=== PATIENT | female | born 1975 | race Hispanic/Latino ===

== ENCOUNTER 2019-05-14 00:25 | Emergency (ER) | payer BC, OTHER ==
[2019-05-14] MEDS ORDERED: Rocuronium Bromide 50 MG/5 ML VIAL ONE ×2 (00:29→03:51)
[2019-05-14 00:55] LABS: Alcohol 166 mg/dL (Less than 10)
[2019-05-14 00:56] LABS: Salicylate Less than 8.0 mg/dL (15.0-30.0)
[2019-05-14 00:57] LABS: Acetaminophen Less than 6.0 mcg/mL (10.0-30.0)
[2019-05-14 01:14] LABS: ALT (SGPT) 12 U/L (8-55); AST (SGOT) 13 U/L (5-34); Albumin 3.9 g/dL (3.5-5.0); Alkaline Phosphatase 46 U/L (40-110); Anion Gap 17 mmol/L (10-20); BUN (Urea Nitrogen) 4 mg/dL (7.0-18.7); Bilirubin, Total Less than 0.2 mg/dL (0.2-1.2); Calc. Creatinine Clearance 0 mL/min (70-130); Calcium 8.2 mg/dL (7.8-10.44); Carbon Dioxide 17 mmol/L (22-29); Chloride 108 mmol/L (98-107); Estimated GFR-MDRD 72; Glucose 208 mg/dL (70-105); Potassium 3.5 mmol/L (3.5-5.1); Protein, Total 6.9 g/dL (6.0-8.3); Sodium 138 mmol/L (136-145)
[2019-05-14 01:16] LABS: Hemoglobin 11.8 g/dL (12.0-16.0); Mean Corpuscular HGB CONC 30.7 g/dL (32.0-36.0); Mean Corpuscular Hemoglobin 32.3 pg (27.0-31.0); Mean Platelet Volume 7.8 fL (7.4-10.4); Platelet Count 328 thou/uL (130-400); Red Blood Cell (RBC) Count 3.64 mill/uL (4.20-5.40); White Blood Cell (WBC) Count 9.7 thou/uL (4.8-10.8)
[2019-05-14 01:17] LABS: #Lymphocytes 2.8 thou/uL (1.20-3.40); #Monocytes 0.8 thou/uL (0.11-0.59); #Neutrophils 5.9 thou/uL (1.40-6.50); %Basophils 1.3 % (0.0-1.0); %Eosinophils 1.6 % (0.0-10.0); %Lymphocytes 28.7 % (21.0-51.0); %Monocytes 8.2 % (0.0-10.0); %Neutrophils 60.3 % (42.0-75.0)
[2019-05-14 01:18] LABS: #Basophils 0.1 thou/uL (0.0-0.2); #Eosinphils 0.2 thou/uL (0.0-0.7); Manual Diff?? NO
[2019-05-14] MEDS ORDERED: Norepinephrine 4 MG/4 ML VIAL ONE (01:23)
[2019-05-14 01:28] LABS: Bilirubin Negative (Negative); Blood, Urine Negative (Negative); Clarity Slightly Cloudy (Clear); Glucose, Urine (Dipstick) Negative (Negative); Leukocyte Trace (Negative); Nitrite Negative (Negative); Protein, Urine (Dipstick) 30 mg/dL (Neg-Trace); Urobilinogen 0.2 mg/dL (Less than 2)
[2019-05-14 01:31] LABS: Pregnancy Test - Urine (BHCG) Negative (Negative); Pregu Control Background? CLEAR/WHITE (CLR/WHITE); Pregu Control Bar Appear? YES (CONTROL BAR); Specific Gravity 1.004 (1.002-1.036)
[2019-05-14 01:35] LABS: Bacteria/HPF Rare-Few HPF (None Seen); RBC/HPF None Seen HPF (0-3); Squamous Epithelial 0-3 HPF (0-3)
[2019-05-14 01:40] LABS: Amphetamine Not Detected (NotDetected); Barbiturates Screen Not Detected (NotDetected); Benzodiazepine Screen Not Detected (NotDetected); Cocaine Metabolite Screen Not Detected (NotDetected); Medtox Control Line Valid? VALID (VALID); Methadone Not Detected (NotDetected); Methamphetamine Not Detected (NotDetected); Opiate Screen Not Detected (NotDetected); Oxycodone Screen Not Detected (NotDetected); Phencyclidine (PCP) Not Detected (NotDetected); THC/Cannabinoid Screen Not Detected (NotDetected); Tricyclic Screen Not Detected (NotDetected)
[2019-05-14 01:41] LABS: Base Excess-Venous -11.6 mmol/L (-2.0 to 3.0); Bicarbonate (HCO3v) 15.8 mmol/L (22.0-28.0); CO2 Tension (PvCO2) 41.1 mmHg (40.0-50.0); Calcium, Ionized 0.98 mmol/L (See Comments:); Chloride 114 mmol/L (98-107); Hemoglobin - Calc 8.8 g/dL (12.0-16.0); Potassium 2.7 mmol/L (3.5-5.1); Sodium 143 mmol/L (138-145); T. Carbon Dioxide 17.1 mmol/L (22.0-28.0); vO2 Saturation-calc 99.4 % (60.0-85.0)
[2019-05-14] MEDS ORDERED: Potassium Chloride 20 MEQ/100 ML PREMIX BAG ONE (01:45)
[2019-05-14 02:21] LABS: Bicarbonate (HCO3v) 15.9 mmol/L (22.0-28.0); CO2 Tension (PvCO2) 39.9 mmHg (40.0-50.0)
[2019-05-14 02:22] LABS: Base Excess-Venous -11.4 mmol/L (-2.0 to 3.0); vO2 Saturation-calc 98.4 % (60.0-85.0)
[2019-05-14 02:25] LABS: Calcium, Ionized 1.04 mmol/L (See Comments:); Chloride 111 mmol/L (98-107); Hemoglobin - Calc 10.4 g/dL (12.0-16.0); Potassium 3.5 mmol/L (3.5-5.1); Sodium 141 mmol/L (138-145); T. Carbon Dioxide 17.1 mmol/L (22.0-28.0)
[2019-05-14] MEDS ORDERED: Fentanyl 100 MCG/2 ML VIAL ONE (03:50)
[2019-05-14] MEDS ORDERED: Ketamine 50 MG/ML (10ML VIAL) ONE (03:52)
--- NOTE | 2019-05-14 07:34 | RAD ---
EXAM: Single view of the chest HISTORY: Endotracheal tube placement for respiratory failure COMPARISON: 05/13/2019 FINDINGS: Single view of the chest shows a normal sized cardiomediastinal silhouette. An endotrachea l tube is seen in good position with its tip between the clavicles. There is no evidence of consolidation, mass, or pleural effusion. The bones are unremarkable. IMPRESSION: No evidence of acute cardiopulmonary disease
[2019-05-14] MEDS ORDERED: EPINEPHrine 1 MG/10 ML Abboject SYRINGE ONE (09:07)
== END 2019-05-14 02:25 | disposition short-term general hospital (02) ==
LOC: BURERS 00:25
DX: T43.212A Poisoning by selective serotonin and norepinephrine reuptake inhibitors, intentional self-harm, initial encounter (principal); T42.8X2A Poisoning by antiparkinsonism drugs and other central muscle-tone depressants, intentional self-harm, initial encounter; R41.82 Altered mental status, unspecified; R94.31 Abnormal electrocardiogram [ECG] [EKG]; F41.9 Anxiety disorder, unspecified; F31.9 Bipolar disorder, unspecified; F17.210 Nicotine dependence, cigarettes, uncomplicated; Z79.899 Other long term (current) drug therapy
CPT/HCPCS: 31500; 36415; 71045; 80053; 80306; 80307; 81003; 81015; 81025; 82330; 82803; 83605; 83735; 85025; 93005; 96360; 96361; 96365; 96375; 96376; J0171; J3010; J3480

== ENCOUNTER 2022-06-09 15:48 | Emergency (ER) | payer MEDICARE, MEDICAID ==
[2022-06-09] MEDS ORDERED: Dexamethasone 4 MG TAB ONE (16:51)
== END 2022-06-09 17:54 | disposition home or self-care (01) ==
LOC: BURERS 15:48
DX: J11.1 Influenza due to unidentified influenza virus with other respiratory manifestations (principal); F17.210 Nicotine dependence, cigarettes, uncomplicated
CPT/HCPCS: 87804; 99283; J8540

== ENCOUNTER 2023-02-05 18:05 | Emergency (ER) | payer MEDICARE, MEDICAID ==
[2023-02-05] MEDS ORDERED: Bupivacaine 0.5% 10 ML VIAL ONE (18:45)
[2023-02-05] MEDS ORDERED: Amoxicillin/Potassium Clav 875 MG TAB ONE (19:15)
== END 2023-02-05 19:19 | disposition home or self-care (01) ==
LOC: BURERS 18:05
DX: K04.7 Periapical abscess without sinus (principal); F17.210 Nicotine dependence, cigarettes, uncomplicated
CPT/HCPCS: 41800; J3490

== ENCOUNTER 2023-07-28 09:25 | Emergency (ER) | payer MEDICARE, OTHER | END 2023-07-28 09:49 | disposition home or self-care (01) | LOC: BURERS 09:25 | DX: G51.0 Bell's palsy (principal); E11.9 Type 2 diabetes mellitus without complications; F17.210 Nicotine dependence, cigarettes, uncomplicated; Z79.899 Other long term (current) drug therapy | CPT/HCPCS: 99284 ==

== ENCOUNTER 2024-05-13 10:36 | Emergency (ER) | payer MEDICARE, MEDICAID ==
[2024-05-13] MEDS ORDERED: Albuterol 2.5 MG (0.5 mL) NEB ONE (11:03)
[2024-05-13] MEDS ORDERED: Albuterol 2.5 MG (3 mL) NEB ONE (11:06)
== END 2024-05-13 11:27 | disposition home or self-care (01) ==
LOC: BURERS 10:36
DX: J20.9 Acute bronchitis, unspecified (principal); E11.9 Type 2 diabetes mellitus without complications; F17.210 Nicotine dependence, cigarettes, uncomplicated; Z79.84 Long term (current) use of oral hypoglycemic drugs
CPT/HCPCS: J7611